=== PATIENT | male | born 1945 | race Caucasian/White ===

== ENCOUNTER → 2024-03-13 | Outpatient (CLI) | payer MEDICARE, SELFPAY ==
--- NOTE | 2024-03-13 09:39 | CDU_ITS ---
Reason For Study: Lt Carotid Bruit Rt. Velocities/BP Lt. Velocities/BP Prox CCA 91.3/10.1 cm/sec. Prox CCA 94.2/12.1 cm/sec. Mid CCA 95.7/7.9 cm/sec. Mid CCA 88.6/9.5 cm/sec. Dist CCA 102.3/16.7 cm/sec. Dist CCA 85.1/13.9 cm/sec. Prox ICA 130.2/20.6 cm/sec. Prox ICA 80.6/14.2 cm/sec. Mid ICA 88.3/12.4 cm/sec. Mid ICA 76.9/17.9 cm/sec. Dist ICA 71.8/14.0 cm/sec. Dist ICA 66.1/13.3 cm/sec. Rt. ICA/CCA = 1.4. Lt. ICA/CCA = 0.9. Prox ECA 130.2/9.7 cm/sec. Prox ECA 161.6/16.7 cm/sec. Rt. Vert. 76.0/10.1 cm/sec. Lt. Vert. 58.1/12.0 cm/sec. Right Extracranial There is heterogeneous, irregular atherosclerotic plaque noted in the right common carotid artery. There is heterogeneous, irregular atherosclerotic plaque noted in the right internal carotid artery. The atherosclerotic plaque causes acoustic shadowing. There is heterogeneous, irregular atherosclerotic plaque noted in the right external carotid artery. Antegrade flow is noted in the right vertebral artery. Left Extracranial There is homogeneous, smooth atherosclerotic plaque noted in the left common carotid artery. There is heterogeneous, irregular atherosclerotic plaque noted in the left internal carotid artery. There is intimal thickening but no significant atherosclerotic plaque noted in the left external carotid artery. Antegrade flow is noted in the left vertebral artery. Procedure Carotid Duplex 28085. This is a Carotid Duplex examination using B-mode, color flow and specral Doppler. The exam was diagnostic. Exam performed in department. VL/Carotid Duplex Ultrasound Interpretation Summary Moderate (50-69%) stenosis right extracranial internal carotid. Mild (<50%) stenosis left extracranial internal carotid. Patent and antegrade vertebrals bilaterally. Ordering Physician: Derrick Watkins Referring Physician: Derrick Watkins Performed By: Renard Gil RVT
--- OUTSIDE RECORDS SUMMARY | 2024-03-13 10:12 | XMS RPT_ITS | CCD ---
Author Organization [facility] Care Team Providers Care Finisher Polisher Name Role Phone NICO GLEZ Unavailable Unavailable KAUSHIK NAVA Unavailable Unavailable Results Test Name Value Interpretation Reference Range Tia joiner LYMEon 06-29-2017 Lyme IgG Bands Test Not Indicated [facility] ([facility] Comment on above: Result Comment: Perf ormed By:[place] [address] [place], [place] [address]Bjl Director: Miranda Maria M.D.CLIA#: [id number]#: Performed By: #### L YMKASI ####[address] [place] [address] Lyme IgG Western BLot Test Not Indicated Normal [facility] ([place]) Comment on above: Result Comment: Perf ormed By:[facility] [address] [place], [place] [address]Aiy Director: Miranda Maria M.D.CLIA#: [id number]#: Performed By: #### L YMKASI ####Allan [address] [place], [place] [address] Lyme IgG/IgM AB Negative Normal NEGAT [facility] ([place]) Comment on above: Result Comment: Abse nce of detectable Borrelia burgdorferi antibodies. A negative result does not exclude the possibility of Borrelia burgdorferi infection. If early Lyme disease is suspected, a second sample should be collected and tested two to four weeks later.Performed By:[facility] [address], [place] [address]Any Director: Miranda Maria M.D.CLIA#: [id number]#: Performed By: #### L YMEGM ####Allan [address] [place], [place] [address] Lyme IgM Bands Test Not Indicated [facility] ([place]) Comment on above: Result Comment: Perf ormed By:[address] [address]Glp Director: Miranda Maria M.D.CLIA#: [id number]#: Performed By: #### L YMEGM ####[address] [place], [place] [address] Lyme IgM Western Blot Test Not Indicated Normal [facility] ([place]) Comment on above: Result Comment: Perf ormed By:[address] [address]Kbz Director: Miranda Maria M.D.CLIA#: [id number]#: Performed By: #### L YMEGM ####[address] [place], [place] [address] Lyme Interpretation No evidence of antibodies to Borrelia burgdorferi. Normal [facility] ([place]) Comment on above: Result Comment: Perf ormed By:[address] [address]Yrf Director: Miranda Maria M.D.CLIA#: [id number]#: Performed By: #### L YMEGM ####[address] [place], [place] [address] Encounters Encounter Date Encounter Type Care Provider Facility Start: 06-28-2017 End: 06-29-2017 [facility] Facility:[facility] Payers Date Payer Category Payer Unknown [id number] Summary Purpose Family History No Family History Records Found Advance Directives No Advanced Directives Records Found Additional Source Comments (unrecognized sect ion and content) No Status Records Found INFORMATION SOURCE (unrecogn ized section and content) DATE CREATED [facility] FOR RECORDS PERTAINING TO PATIENTS WHO ARE OR HAVE BEEN ENROLLED IN A CHEMICAL DEPENDENCY/SUBSTANCEABUSE PROGRAM, SOME INFORMATION MAY BE OMITTED. This clinical summary was aggregated from multiple sources. Caution should be exercised in using it in the provision of clinical care. This summary normalizes information from multiple sources, and as a consequence, information in this document may materially change the coding, format and clinical context of patient data. In addition, data may be omitted in some cases. CLINICAL DECISIONS SHOULD BE BASED ON THE PRIMARY CLINICAL RECORDS. [facility]. provides no warranty or guarantee of the accuracy or completeness of information in this document.
== END | disposition home or self-care (01) ==
PROVIDERS: PCP Family Medicine; Referring Provider Family Medicine; Visit Provider Family Medicine
DX: R09.89 Other specified symptoms and signs involving the circulatory and respiratory systems (principal)
CPT/HCPCS: 93880